=== PATIENT | male | born 1950 | race Caucasian/White ===

== ENCOUNTER 2017-07-26 03:54 | Emergency (ER) | payer OTHER ==
[~2017-07-26] VITALS: Ht 190.5 cm; Wt 170.1 kg
[~2017-07-26 03:54] MED LIST: ATENOLOL25 MG PO; BLACK CHERRY CONCENT; COUMADIN5 M2 PO; DILTIAZEM HCL120 MG PO; FINASTERIDE5 MG PO; FISH OIL1 IU PO; GABAPENTIN1 CRY PO; KEFLEX500 MG PO; LASIX40 MG PO; LASIX80 MG PO; LISINOPRIL20 MG PO; MASON NATURAL1200 MG PO; MICRO-K10 MEQ PO; OSTEO-BI-FLEX 21 TAB PO; TURMERIC1 POW; VICODIN 500 MG-1 TAB PO; WARFARIN4 MG PO; ZOCOR20 MG PO; ZYLOPRIM300 MG PO
[2017-07-26] MEDS ORDERED: WARFARIN SODIUM3 MG PO (04:06)
[2017-07-26] MEDS ORDERED: CARVEDILOL12.5 MG PO (04:06)
[2017-07-26] MEDS ORDERED: TESTOSTERO200 MG/1 M IM (04:07)
[2017-07-26] MEDS ORDERED: TORSEMIDE100 MG PO (04:07)
[2017-07-26] MEDS ORDERED: POTASSIUM CHLO20 ME3 PO (04:08)
[2017-07-26 04:29] LABS: BILIRUBIN NEGATIVE (NEGATIVE); BLOOD 3+ (NEGATIVE); CLARITY CLOUDY (CLEAR); COLOR YELLOW (YELLOW); GLUCOSE NEGATIVE (NEGATIVE); KETONE NEGATIVE (NEGATIVE); LEUKO ESTERASE 3+ (NEGATIVE); NITRITE POSITIVE (NEGATIVE); PH 5.5 (5.0-9.0); UROBILINOGEN 0.2 E.U./dl (0.2-1.0)
[2017-07-26 04:35] LABS: HEMATOCRIT 51.9 % (42.0-52.0); HEMOGLOBIN 16.9 g/dl (14.0-18.0); MEAN CELL VOLUME 97.2 fl (80.0-94.0); MEAN CORPUSCULAR HGB 31.6 pg (27.0-31.0); MEAN CORPUSCULAR HGB CONC 32.6 g/dl (33.0-37.0); MEAN PLATELET VOLUME 11.7 fl (9.6-12.3); PLATELET COUNT AUTOMATED 224 10*3/uL (130-400); RED BLOOD COUNT 5.34 10*6/uL (4.50-5.90); RED CELL DISTRI WIDTH 14.2 % (0-14.5); WHITE BLOOD COUNT 13.6 10*3/uL (4.8-10.8)
[2017-07-26 04:44] LABS: WBC TNTC wbc/hpf (0-5)
[2017-07-26 04:51] LABS: ALBUMIN 3.1 gm/dl (3.1-4.5); CREATININE 1.43 mg/dL (0.70-1.30); POTASSIUM 4.6 mmol/L (3.5-5.1); TOTAL PROTEIN 7.4 gm/dL (6.4-8.2)
[2017-07-26 04:52] LABS: PLATELET SUFFICIENCY NORMAL (NORMAL); TOTAL CELLS COUNTED 100 #CELLS
[2017-07-26] MEDS ORDERED: NORCO 5-325 TA1 EACH PO (05:35)
[2017-07-26] MEDS ORDERED: SEPTDS PO (05:35)
== END 2017-07-26 06:45 | disposition home or self-care (01) ==
LOC: ED 03:54
PROVIDERS: Student in an Organized Health Care Education/Training Program
DX: N39.0 Urinary tract infection, site not specified (principal); R31.9 Hematuria, unspecified; Z79.899 Other long term (current) drug therapy; Z79.02 Long term (current) use of antithrombotics/antiplatelets

== ENCOUNTER 2017-07-30 21:56 | Inpatient (IN) | payer OTHER ==
[~2017-07-30] VITALS: Ht 190.5 cm; Wt 182.5 kg
[~2017-07-30 21:56] MED LIST changes: +CARVEDILOL12.5 MG PO; +NORCO 5-325 TA1 EACH PO; +POTASSIUM CHLO20 ME3 PO; +SEPTDS PO; +TESTOSTERO200 MG/1 M IM; +TORSEMIDE100 MG PO; +WARFARIN SODIUM3 MG PO
[2017-07-30 22:08] VITALS: BP 183/107
[2017-07-30 22:21] VITALS: BP 170/108
[2017-07-30 22:58] LABS: BASO # 0.1 10*3/uL (0.0-0.1); BASO % 0.7 % (0.0-1.0); EOS # 0.3 10*3/uL (0.0-0.4); EOS % 3.2 % (1.0-4.0); HEMATOCRIT 50.8 % (42.0-52.0); HEMOGLOBIN 16.5 g/dl (14.0-18.0); LYMPH # 2.5 10*3/uL (1.3-4.4); LYMPH % 26.3 % (27.0-41.0); MEAN CELL VOLUME 97.9 fl (80.0-94.0); MEAN CORPUSCULAR HGB 31.8 pg (27.0-31.0); MEAN CORPUSCULAR HGB CONC 32.5 g/dl (33.0-37.0); MEAN PLATELET VOLUME 11.1 fl (9.6-12.3); MONO # 0.9 10*3/uL (0.1-1.0); MONO % 9.6 % (3.0-9.0); NEUT # 5.7 10*3/uL (2.3-7.9); NEUT % 59.4 % (47.0-73.0); PLATELET COUNT AUTOMATED 289 10*3/uL (130-400); RED BLOOD COUNT 5.19 10*6/uL (4.50-5.90); RED CELL DISTRI WIDTH 14.3 % (0-14.5); WHITE BLOOD COUNT 9.6 10*3/uL (4.8-10.8)
[2017-07-30 23:07] VITALS: BP 170/104
[2017-07-30 23:08] LABS: ACT PARTIAL THROMBO TIME 33.9 SECONDS (20.8-31.5); INTERNATIONAL NORM RATIO 1.9 (2.0-3.5)
[2017-07-30 23:09] VITALS: BP 160/94
[2017-07-30 23:13] VITALS: BP 147/85
[2017-07-30 23:15] LABS: ALBUMIN 3.2 gm/dl (3.1-4.5); ALKALINE PHOSPHATASE 104 U/L (45-117); BUN 31 mg/dl (7-24); CHLORIDE 107 mmol/L (98-107); CREATININE 1.39 mg/dL (0.70-1.30); POTASSIUM 4.8 mmol/L (3.5-5.1); SGOT/AST 25 IU/L (3-35); SGPT/ALT 44 U/L (12-78); SODIUM 140 mmol/L (136-145); TOTAL PROTEIN 7.6 gm/dL (6.4-8.2)
[2017-07-30 23:16] LABS: TROPONIN I < 0.015 ng/ml (<0.045)
[2017-07-31] VITALS (10 sets, daily range): BP systolic 153–187; BP diastolic 89–110
[2017-07-31 06:04] LABS: BASO # 0.1 10*3/uL (0.0-0.1); BASO % 0.8 % (0.0-1.0); EOS # 0.3 10*3/uL (0.0-0.4); EOS % 3.1 % (1.0-4.0); HEMOGLOBIN 16.3 g/dl (14.0-18.0); LYMPH # 2.4 10*3/uL (1.3-4.4); LYMPH % 25.3 % (27.0-41.0); MEAN CELL VOLUME 98.2 fl (80.0-94.0); MEAN CORPUSCULAR HGB CONC 32.6 g/dl (33.0-37.0); MEAN PLATELET VOLUME 11.7 fl (9.6-12.3); MONO # 0.8 10*3/uL (0.1-1.0); MONO % 8.3 % (3.0-9.0); NEUT # 5.9 10*3/uL (2.3-7.9); NEUT % 61.3 % (47.0-73.0); PLATELET COUNT AUTOMATED 296 10*3/uL (130-400); RED BLOOD COUNT 5.09 10*6/uL (4.50-5.90); RED CELL DISTRI WIDTH 14.2 % (0-14.5); WHITE BLOOD COUNT 9.6 10*3/uL (4.8-10.8)
[2017-07-31 06:05] LABS: ALKALINE PHOSPHATASE 103 U/L (45-117); BUN 27 mg/dl (7-24); CHLORIDE 106 mmol/L (98-107); CHOLESTEROL 138 mg/dL (<200); CREATININE 1.33 mg/dL (0.70-1.30); HDL CHOLESTEROL 28 mg/dl (40-60); LDL CHOLESTEROL 73 mg/dL (9-159); POTASSIUM 4.3 mmol/L (3.5-5.1); SGOT/AST 24 IU/L (3-35); SGPT/ALT 44 U/L (12-78); SODIUM 140 mmol/L (136-145); TOTAL PROTEIN 7.5 gm/dL (6.4-8.2); TRIGLYCERIDES 187 mg/dl (<150); VLDL CHOLESTEROL 37 mg/dL (6-40)
[2017-07-31 07:15] LABS: VITAMIN D, 25-HYDROXY 19.8 ng/mL (30-100)
[2017-07-31] MEDS ORDERED: LOSARTAN POTASS50 M1 PO (13:04)
[2017-07-31] MEDS ORDERED: VITAMIN D5000 UNI1 PO (13:04)
[2017-07-31 16:18] LABS: BILIRUBIN NEGATIVE (NEGATIVE); BLOOD TRACE-INTACT (NEGATIVE); CLARITY CLEAR (CLEAR); COLOR YELLOW (YELLOW); GLUCOSE NEGATIVE (NEGATIVE); KETONE NEGATIVE (NEGATIVE); LEUKO ESTERASE NEGATIVE (NEGATIVE); NITRITE NEGATIVE (NEGATIVE); PH 5.5 (5.0-9.0); SPECIFIC GRAVITY <= 1.005 (1.005-1.030); UROBILINOGEN 0.2 E.U./dl (0.2-1.0)
[2017-07-31 16:25] LABS: BACTERIA 1+; RBC 0-2 rbc/hpf (0-2)
[2017-08-01] VITALS: BP 153/89
[2017-08-01 07:30] LABS: ALBUMIN 3.3 gm/dl (3.1-4.5); BUN 24 mg/dl (7-24); CHLORIDE 105 mmol/L (98-107); POTASSIUM 4.7 mmol/L (3.5-5.1); SODIUM 142 mmol/L (136-145)
[2017-08-01 07:33] LABS: CREATININE 1.28 mg/dL (0.70-1.30); PHOSPHOROUS 3.4 mg/dL (2.5-4.9)
[2017-08-01 08:00] VITALS: BP 168/84
[2017-08-01 12:00] VITALS: BP 164/103
[2017-08-01] MEDS ORDERED: AMLODIPINE BESYL5 MG PO (14:59)
[2017-08-01 15:00] VITALS: BP 150/95
[2017-08-01] MEDS ORDERED: COZAAR100 MG PO (15:01)
== END 2017-08-01 16:00 | disposition home or self-care (01) | DRG 304 ==
LOC: ED 21:56 → EDHOLD 07-31 00:20 → 4E 07-31 00:39
PROVIDERS: Hospitalist; Internal Medicine; Student in an Organized Health Care Education/Training Program
PROC: 5A09357 Assistance with Respiratory Ventilation, Less than 24 Consecutive Hours, Continuous Positive Airway Pressure (ICD-10-PCS; principal; 2017-07-31)
PROC: 5A09357 Assistance with Respiratory Ventilation, Less than 24 Consecutive Hours, Continuous Positive Airway Pressure (ICD-10-PCS; 2017-08-01)
DX: I16.1 Hypertensive emergency (principal); N17.0 Acute kidney failure with tubular necrosis; D68.59 Other primary thrombophilia; I48.2 Chronic atrial fibrillation; I50.9 Heart failure, unspecified; E66.01 Morbid (severe) obesity due to excess calories; E44.1 Mild protein-calorie malnutrition; G62.89 Other specified polyneuropathies; N18.3 Chronic kidney disease, stage 3 (moderate); N39.0 Urinary tract infection, site not specified; Z68.43 Body mass index [BMI] 50.0-59.9, adult; G47.39 Other sleep apnea; D72.810 Lymphocytopenia; N40.0 Benign prostatic hyperplasia without lower urinary tract symptoms; D72.821 Monocytosis (symptomatic); R73.9 Hyperglycemia, unspecified; R73.03 Prediabetes; E55.9 Vitamin D deficiency, unspecified; I13.0 Hypertensive heart and chronic kidney disease with heart failure and stage 1 through stage 4 chronic kidney disease, or unspecified chronic kidney disease; Z80.52 Family history of malignant neoplasm of bladder; Z82.49 Family history of ischemic heart disease and other diseases of the circulatory system; Z98.1 Arthrodesis status; Z90.49 Acquired absence of other specified parts of digestive tract; Z82.5 Family history of asthma and other chronic lower respiratory diseases; Z79.899 Other long term (current) drug therapy; Z80.6 Family history of leukemia

== ENCOUNTER → 2017-08-13 | Outpatient (CLI) | payer OTHER ==
[~2017-08-13] MED LIST changes: +AMLODIPINE BESYL5 MG PO; +COZAAR100 MG PO; +LOSARTAN POTASS50 M1 PO; +VITAMIN D5000 UNI1 PO
[2017-08-13 16:44] LABS: INTERNATIONAL NORM RATIO 2.2 (2.0-3.5)
[2017-08-13 16:48] LABS: ALBUMIN 3.6 gm/dl (3.1-4.5); ALKALINE PHOSPHATASE 102 U/L (45-117); BUN 37 mg/dl (7-24); CHLORIDE 101 mmol/L (98-107); CREATININE 1.31 mg/dL (0.70-1.30); POTASSIUM 4.7 mmol/L (3.5-5.1); SGOT/AST 42 IU/L (3-35); SGPT/ALT 83 U/L (12-78); SODIUM 138 mmol/L (136-145); TOTAL PROTEIN 8.1 gm/dL (6.4-8.2)
[2017-08-15 00:08] LABS: TESTOSTERONE FREE, (DIRECT) 11.5 pg/mL (6.6-18.1)
== END | disposition home or self-care (01) ==
LOC: RESCLI 02:25 → LAB 02:25 → RESCLI 12:33
PROVIDERS: Internal Medicine
DX: I48.2 Chronic atrial fibrillation (principal); N40.0 Benign prostatic hyperplasia without lower urinary tract symptoms

== ENCOUNTER → 2017-09-10 | Outpatient (CLI) | payer OTHER | END | disposition home or self-care (01) | LOC: RESCLI 02:13 | DX: I12.9 Hypertensive chronic kidney disease with stage 1 through stage 4 chronic kidney disease, or unspecified chronic kidney disease (principal); N18.3 Chronic kidney disease, stage 3 (moderate); I48.2 Chronic atrial fibrillation; E55.9 Vitamin D deficiency, unspecified; E66.01 Morbid (severe) obesity due to excess calories; G47.33 Obstructive sleep apnea (adult) (pediatric); D68.59 Other primary thrombophilia; N40.0 Benign prostatic hyperplasia without lower urinary tract symptoms; E29.1 Testicular hypofunction; Z79.01 Long term (current) use of anticoagulants; Z90.49 Acquired absence of other specified parts of digestive tract ==

== ENCOUNTER → 2017-09-17 | Outpatient (CLI) | payer OTHER | END | disposition home or self-care (01) | LOC: RESCLI 02:20 | DX: I12.9 Hypertensive chronic kidney disease with stage 1 through stage 4 chronic kidney disease, or unspecified chronic kidney disease (principal); I48.2 Chronic atrial fibrillation; N18.3 Chronic kidney disease, stage 3 (moderate); M1A.09X0 Idiopathic chronic gout, multiple sites, without tophus (tophi); N40.0 Benign prostatic hyperplasia without lower urinary tract symptoms; D68.59 Other primary thrombophilia; G47.33 Obstructive sleep apnea (adult) (pediatric); E55.9 Vitamin D deficiency, unspecified; E29.1 Testicular hypofunction; R74.0 Nonspecific elevation of levels of transaminase and lactic acid dehydrogenase [LDH]; E66.01 Morbid (severe) obesity due to excess calories; Z90.49 Acquired absence of other specified parts of digestive tract ==

== ENCOUNTER → 2017-12-17 | Outpatient (CLI) | payer OTHER | END | disposition home or self-care (01) | LOC: RESCLI 02:16 | DX: I12.9 Hypertensive chronic kidney disease with stage 1 through stage 4 chronic kidney disease, or unspecified chronic kidney disease (principal); N18.3 Chronic kidney disease, stage 3 (moderate); I48.2 Chronic atrial fibrillation; N40.0 Benign prostatic hyperplasia without lower urinary tract symptoms; G62.9 Polyneuropathy, unspecified; D68.59 Other primary thrombophilia; E55.9 Vitamin D deficiency, unspecified; E29.1 Testicular hypofunction; E66.01 Morbid (severe) obesity due to excess calories; E44.1 Mild protein-calorie malnutrition; M1A.09X0 Idiopathic chronic gout, multiple sites, without tophus (tophi); G47.33 Obstructive sleep apnea (adult) (pediatric); R73.03 Prediabetes; R74.0 Nonspecific elevation of levels of transaminase and lactic acid dehydrogenase [LDH]; Z79.01 Long term (current) use of anticoagulants; Z90.49 Acquired absence of other specified parts of digestive tract ==

== ENCOUNTER → 2017-12-24 | Outpatient (CLI) | payer OTHER ==
[2017-12-24 12:47] LABS: BASO # 0.1 10*3/uL (0.0-0.1); BASO % 0.6 % (0.0-1.0); EOS # 0.5 10*3/uL (0.0-0.4); EOS % 5.6 % (1.0-4.0); HEMOGLOBIN 19.2 g/dl (14.0-18.0); LYMPH # 1.9 10*3/uL (1.3-4.4); LYMPH % 23.3 % (27.0-41.0); MEAN CORPUSCULAR HGB 31.3 pg (27.0-31.0); MEAN CORPUSCULAR HGB CONC 31.3 g/dl (33.0-37.0); MEAN PLATELET VOLUME 11.8 fl (9.6-12.3); MONO # 0.7 10*3/uL (0.1-1.0); MONO % 8.3 % (3.0-9.0); NEUT # 5.1 10*3/uL (2.3-7.9); NEUT % 61.8 % (47.0-73.0); PLATELET COUNT AUTOMATED 212 10*3/uL (130-400); RED BLOOD COUNT 6.14 10*6/uL (4.50-5.90); RED CELL DISTRI WIDTH 14.6 % (0-14.5); WHITE BLOOD COUNT 8.3 10*3/uL (4.8-10.8)
[2017-12-24 13:02] LABS: ALBUMIN 3.5 gm/dl (3.1-4.5); CREATININE 1.43 mg/dL (0.70-1.30); POTASSIUM 4.5 mmol/L (3.5-5.1); TOTAL PROTEIN 8.1 gm/dL (6.4-8.2)
[2017-12-24 13:09] LABS: INTERNATIONAL NORM RATIO 1.7 (2.0-3.5)
[2017-12-24 13:23] LABS: HEMATOCRIT 61.4 % (42.0-52.0)
[2017-12-24 14:09] LABS: VITAMIN D, 25-HYDROXY 25.7 ng/mL (30-100)
[2017-12-25 07:04] LABS: HEPATITIS B SURFACE AG Negative (Negative); HEPATITIS C VIRUS ANTIBODY 0.1 s/co (0.0-0.9)
[2017-12-26 15:04] LABS: TESTOSTERONE FREE, (DIRECT) 13.2 pg/mL (6.6-18.1)
== END | disposition home or self-care (01) ==
LOC: LAB 12:01
PROVIDERS: Internal Medicine Hospice and Palliative Medicine
DX: I10 Essential (primary) hypertension (principal); I48.2 Chronic atrial fibrillation; E55.9 Vitamin D deficiency, unspecified; D68.59 Other primary thrombophilia; M1A.09X0 Idiopathic chronic gout, multiple sites, without tophus (tophi); G62.9 Polyneuropathy, unspecified; R74.0 Nonspecific elevation of levels of transaminase and lactic acid dehydrogenase [LDH]; R73.03 Prediabetes

== ENCOUNTER 2018-02-12 20:50 | Emergency (ER) | payer OTHER ==
[~2018-02-12] VITALS: Ht 190.5 cm; Wt 186.0 kg
[2018-02-12] MEDS ORDERED: XARELTO10 MG PO (20:54)
== END 2018-02-12 21:57 | disposition home or self-care (01) ==
LOC: ED 20:50
DX: R04.0 Epistaxis (principal); I48.2 Chronic atrial fibrillation; N18.3 Chronic kidney disease, stage 3 (moderate); I12.9 Hypertensive chronic kidney disease with stage 1 through stage 4 chronic kidney disease, or unspecified chronic kidney disease; E66.01 Morbid (severe) obesity due to excess calories; Z68.43 Body mass index [BMI] 50.0-59.9, adult; G62.9 Polyneuropathy, unspecified; R73.03 Prediabetes; Z79.899 Other long term (current) drug therapy

== ENCOUNTER 2018-02-15 12:59 | Emergency (ER) | payer OTHER ==
[~2018-02-15 12:59] MED LIST changes: +XARELTO10 MG PO
[2018-02-15 15:19] LABS: BASO # 0.1 10*3/uL (0.0-0.1); BASO % 0.5 % (0.0-1.0); EOS # 0.4 10*3/uL (0.0-0.4); EOS % 4.7 % (1.0-4.0); HEMATOCRIT 51.5 % (42.0-52.0); HEMOGLOBIN 16.3 g/dl (14.0-18.0); LYMPH # 2.1 10*3/uL (1.3-4.4); LYMPH % 22.1 % (27.0-41.0); MEAN CELL VOLUME 96.8 fl (80.0-94.0); MEAN CORPUSCULAR HGB 30.6 pg (27.0-31.0); MEAN CORPUSCULAR HGB CONC 31.7 g/dl (33.0-37.0); MEAN PLATELET VOLUME 11.4 fl (9.6-12.3); MONO # 0.8 10*3/uL (0.1-1.0); MONO % 8.4 % (3.0-9.0); PLATELET COUNT AUTOMATED 204 10*3/uL (130-400); RED BLOOD COUNT 5.32 10*6/uL (4.50-5.90); WHITE BLOOD COUNT 9.3 10*3/uL (4.8-10.8)
[2018-02-15 15:27] LABS: INTERNATIONAL NORM RATIO 1.1 (2.0-3.5)
[2018-02-15 15:33] LABS: ALBUMIN 3.3 gm/dl (3.1-4.5); ALKALINE PHOSPHATASE 93 U/L (45-117); BUN 36 mg/dl (7-24); CHLORIDE 102 mmol/L (98-107); CREATININE 1.42 mg/dL (0.70-1.30); POTASSIUM 4.2 mmol/L (3.5-5.1); SGOT/AST 32 IU/L (3-35); SGPT/ALT 58 U/L (12-78); SODIUM 141 mmol/L (136-145); TOTAL PROTEIN 7.7 gm/dL (6.4-8.2)
== END 2018-02-15 16:44 | disposition home or self-care (01) ==
LOC: ED 12:59
PROVIDERS: Nurse Practitioner Family
DX: R04.0 Epistaxis (principal); I48.91 Unspecified atrial fibrillation; Z90.49 Acquired absence of other specified parts of digestive tract; Z98.890 Other specified postprocedural states; Z79.01 Long term (current) use of anticoagulants; Z79.899 Other long term (current) drug therapy

== ENCOUNTER → 2018-03-20 | Outpatient (CLI) | payer OTHER | END | disposition home or self-care (01) | LOC: RESCLI 04:13 | DX: I48.2 Chronic atrial fibrillation (principal); I12.9 Hypertensive chronic kidney disease with stage 1 through stage 4 chronic kidney disease, or unspecified chronic kidney disease; N18.3 Chronic kidney disease, stage 3 (moderate); M1A.09X0 Idiopathic chronic gout, multiple sites, without tophus (tophi); N40.0 Benign prostatic hyperplasia without lower urinary tract symptoms; R73.03 Prediabetes; D68.59 Other primary thrombophilia; G47.33 Obstructive sleep apnea (adult) (pediatric); E55.9 Vitamin D deficiency, unspecified; E29.1 Testicular hypofunction; E66.01 Morbid (severe) obesity due to excess calories; G62.9 Polyneuropathy, unspecified; Z79.01 Long term (current) use of anticoagulants; Z90.49 Acquired absence of other specified parts of digestive tract; Z79.899 Other long term (current) drug therapy ==

== ENCOUNTER → 2018-05-29 | Outpatient (CLI) | payer OTHER | END | disposition home or self-care (01) | LOC: RESCLI 02:42 | DX: I12.9 Hypertensive chronic kidney disease with stage 1 through stage 4 chronic kidney disease, or unspecified chronic kidney disease (principal); N18.3 Chronic kidney disease, stage 3 (moderate); I48.2 Chronic atrial fibrillation; G62.9 Polyneuropathy, unspecified; E29.1 Testicular hypofunction; N40.0 Benign prostatic hyperplasia without lower urinary tract symptoms; M1A.09X0 Idiopathic chronic gout, multiple sites, without tophus (tophi); E55.9 Vitamin D deficiency, unspecified; R60.0 Localized edema; R73.03 Prediabetes; E66.01 Morbid (severe) obesity due to excess calories; Z79.01 Long term (current) use of anticoagulants; Z79.899 Other long term (current) drug therapy; Z90.49 Acquired absence of other specified parts of digestive tract ==

== ENCOUNTER → 2018-06-04 | Outpatient (CLI) | payer OTHER | END | disposition home or self-care (01) | LOC: RESCLI 01:06 | DX: L57.0 Actinic keratosis (principal); E10.9 Type 1 diabetes mellitus without complications; E55.9 Vitamin D deficiency, unspecified; E78.2 Mixed hyperlipidemia; K21.9 Gastro-esophageal reflux disease without esophagitis; M54.5 Low back pain; D64.9 Anemia, unspecified; K50.911 Crohn's disease, unspecified, with rectal bleeding; R00.0 Tachycardia, unspecified; R11.2 Nausea with vomiting, unspecified; F17.200 Nicotine dependence, unspecified, uncomplicated; Z79.899 Other long term (current) drug therapy; Z88.8 Allergy status to other drugs, medicaments and biological substances ==

== ENCOUNTER → 2018-11-19 | Outpatient (CLI) | payer OTHER ==
[2018-11-19 08:55] LABS: BASO # 0.1 10*3/uL (0.0-0.1); BASO % 0.7 % (0.0-1.0); EOS # 0.6 10*3/uL (0.0-0.4); EOS % 6.5 % (1.0-4.0); LYMPH # 2.3 10*3/uL (1.3-4.4); LYMPH % 26.2 % (27.0-41.0); MEAN CELL VOLUME 97.3 fl (80.0-94.0); MEAN CORPUSCULAR HGB 30.6 pg (27.0-31.0); MEAN CORPUSCULAR HGB CONC 31.5 g/dl (33.0-37.0); MEAN PLATELET VOLUME 11.8 fl (9.6-12.3); MONO # 0.8 10*3/uL (0.1-1.0); MONO % 9.2 % (3.0-9.0); NEUT % 57.2 % (47.0-73.0); PLATELET COUNT AUTOMATED 203 10*3/uL (130-400); RED BLOOD COUNT 5.55 10*6/uL (4.50-5.90); RED CELL DISTRI WIDTH 14.4 % (0-14.5); WHITE BLOOD COUNT 8.8 10*3/uL (4.8-10.8)
[2018-11-19 09:22] LABS: ALBUMIN 3.4 gm/dl (3.1-4.5); ALKALINE PHOSPHATASE 99 U/L (45-117); BUN 27 mg/dl (7-24); CHLORIDE 107 mmol/L (98-107); CHOLESTEROL 177 mg/dL (<200); CREATININE 1.28 mg/dL (0.70-1.30); HDL CHOLESTEROL 35 mg/dl (40-60); LDL CHOLESTEROL 120 mg/dL (9-159); POTASSIUM 4.1 mmol/L (3.5-5.1); SGOT/AST 39 IU/L (3-35); SGPT/ALT 81 U/L (12-78); SODIUM 143 mmol/L (136-145); TOTAL PROTEIN 7.8 gm/dL (6.4-8.2); TRIGLYCERIDES 112 mg/dl (<150); VLDL CHOLESTEROL 22 mg/dL (6-40)
== END | disposition home or self-care (01) ==
LOC: LAB 08:12
PROVIDERS: Internal Medicine
DX: I48.2 Chronic atrial fibrillation (principal); I10 Essential (primary) hypertension; E55.9 Vitamin D deficiency, unspecified; R73.03 Prediabetes; Z79.01 Long term (current) use of anticoagulants

== ENCOUNTER → 2018-12-12 | Outpatient (CLI) | payer OTHER ==
[2018-12-12 08:47] LABS: BASO # 0.1 10*3/uL (0.0-0.1); BASO % 0.7 % (0.0-1.0); EOS # 0.5 10*3/uL (0.0-0.4); EOS % 5.8 % (1.0-4.0); HEMATOCRIT 51.9 % (42.0-52.0); HEMOGLOBIN 16.7 g/dl (14.0-18.0); LYMPH # 2.9 10*3/uL (1.3-4.4); LYMPH % 32.3 % (27.0-41.0); MEAN CELL VOLUME 97.7 fl (80.0-94.0); MEAN CORPUSCULAR HGB 31.5 pg (27.0-31.0); MEAN CORPUSCULAR HGB CONC 32.2 g/dl (33.0-37.0); MEAN PLATELET VOLUME 11.2 fl (9.6-12.3); MONO # 0.9 10*3/uL (0.1-1.0); MONO % 9.3 % (3.0-9.0); NEUT # 4.7 10*3/uL (2.3-7.9); NEUT % 51.4 % (47.0-73.0); PLATELET COUNT AUTOMATED 248 10*3/uL (130-400); RED BLOOD COUNT 5.31 10*6/uL (4.50-5.90); RED CELL DISTRI WIDTH 14.1 % (0-14.5); WHITE BLOOD COUNT 9.1 10*3/uL (4.8-10.8)
[2018-12-13 16:09] LABS: PROSTATE SPECIFIC AG FREE 0.54 ng/mL; PROSTATE SPECIFIC AG, SERUM 2.3 ng/mL (0.0-4.0)
[2018-12-14 14:07] LABS: TESTOSTERONE FREE, (DIRECT) 12.3 pg/mL (6.6-18.1)
== END | disposition home or self-care (01) ==
LOC: LAB 08:26
PROVIDERS: Student in an Organized Health Care Education/Training Program
DX: E29.1 Testicular hypofunction (principal); N40.0 Benign prostatic hyperplasia without lower urinary tract symptoms

== ENCOUNTER → 2019-01-28 | Outpatient (CLI) | payer OTHER ==
[2019-01-28 12:18] LABS: BASO # 0.1 10*3/uL (0.0-0.1); BASO % 0.6 % (0.0-1.0); EOS # 0.2 10*3/uL (0.0-0.4); EOS % 1.8 % (1.0-4.0); HEMATOCRIT 49.7 % (42.0-52.0); HEMOGLOBIN 15.8 g/dl (14.0-18.0); LYMPH # 1.8 10*3/uL (1.3-4.4); LYMPH % 16.1 % (27.0-41.0); MEAN CELL VOLUME 97.8 fl (80.0-94.0); MEAN CORPUSCULAR HGB 31.1 pg (27.0-31.0); MEAN CORPUSCULAR HGB CONC 31.8 g/dl (33.0-37.0); MEAN PLATELET VOLUME 11.7 fl (9.6-12.3); MONO # 1.1 10*3/uL (0.1-1.0); MONO % 9.4 % (3.0-9.0); NEUT # 8.2 10*3/uL (2.3-7.9); NEUT % 71.6 % (47.0-73.0); PLATELET COUNT AUTOMATED 240 10*3/uL (130-400); RED BLOOD COUNT 5.08 10*6/uL (4.50-5.90); RED CELL DISTRI WIDTH 13.7 % (0-14.5); WHITE BLOOD COUNT 11.4 10*3/uL (4.8-10.8)
== END | disposition home or self-care (01) ==
LOC: RESCLI 08:27
PROVIDERS: Internal Medicine
DX: M21.6X1 Other acquired deformities of right foot (principal); I12.9 Hypertensive chronic kidney disease with stage 1 through stage 4 chronic kidney disease, or unspecified chronic kidney disease; N18.3 Chronic kidney disease, stage 3 (moderate); I48.2 Chronic atrial fibrillation; S99.911A Unspecified injury of right ankle, initial encounter; E66.01 Morbid (severe) obesity due to excess calories; G62.9 Polyneuropathy, unspecified; M1A.09X0 Idiopathic chronic gout, multiple sites, without tophus (tophi); R73.03 Prediabetes; D68.59 Other primary thrombophilia; R60.0 Localized edema; Z79.899 Other long term (current) drug therapy; Z79.01 Long term (current) use of anticoagulants; Z68.43 Body mass index [BMI] 50.0-59.9, adult; Z90.49 Acquired absence of other specified parts of digestive tract; X58.XXXA Exposure to other specified factors, initial encounter; Y93.89 Activity, other specified; Y92.89 Other specified places as the place of occurrence of the external cause; Y99.8 Other external cause status

== ENCOUNTER → 2019-03-07 | Outpatient (CLI) | payer OTHER | END | disposition home or self-care (01) | LOC: RESCLI 01:13 | DX: I48.2 Chronic atrial fibrillation (principal); R60.0 Localized edema; E55.9 Vitamin D deficiency, unspecified; E53.8 Deficiency of other specified B group vitamins; G62.9 Polyneuropathy, unspecified; Z79.01 Long term (current) use of anticoagulants; Z79.899 Other long term (current) drug therapy; I12.9 Hypertensive chronic kidney disease with stage 1 through stage 4 chronic kidney disease, or unspecified chronic kidney disease; N18.3 Chronic kidney disease, stage 3 (moderate) ==

== ENCOUNTER → 2019-06-19 | Outpatient (CLI) | payer OTHER | END | disposition home or self-care (01) | LOC: RESCLI 00:54 | DX: I48.20 Chronic atrial fibrillation, unspecified (principal); I10 Essential (primary) hypertension; G62.9 Polyneuropathy, unspecified; E55.9 Vitamin D deficiency, unspecified; E53.8 Deficiency of other specified B group vitamins; N40.0 Benign prostatic hyperplasia without lower urinary tract symptoms; M10.041 Idiopathic gout, right hand; E66.01 Morbid (severe) obesity due to excess calories; R60.0 Localized edema; R73.03 Prediabetes; Z79.01 Long term (current) use of anticoagulants; Z79.899 Other long term (current) drug therapy; Z90.49 Acquired absence of other specified parts of digestive tract; Z90.89 Acquired absence of other organs ==

== ENCOUNTER 2019-07-20 05:38 | Inpatient (IN) | payer OTHER ==
[~2019-07-20] VITALS: Ht 190.5 cm; Wt 184.3 kg
[~2019-07-20 05:38] MED LIST changes: -XARELTO10 MG PO; +XARELTO20 M1 PO
[2019-07-20 05:49] VITALS: BP 105/59
[2019-07-20 07:02] LABS: HEMATOCRIT 45.4 % (42.0-52.0); HEMOGLOBIN 14.3 g/dl (14.0-18.0); MEAN CELL VOLUME 98.9 fl (80.0-94.0); MEAN CORPUSCULAR HGB 31.2 pg (27.0-31.0); MEAN CORPUSCULAR HGB CONC 31.5 g/dl (33.0-37.0); PLATELET COUNT AUTOMATED 226 10*3/uL (130-400); RED BLOOD COUNT 4.59 10*6/uL (4.50-5.90); RED CELL DISTRI WIDTH 14.5 % (0-14.5); WHITE BLOOD COUNT 17.8 10*3/uL (4.8-10.8)
[2019-07-20 07:12] LABS: ACT PARTIAL THROMBO TIME 41.4 SECONDS (20.0-32.1); INTERNATIONAL NORM RATIO 1.1 (2.0-3.5)
[2019-07-20 07:21] LABS: ALBUMIN 2.5 gm/dl (3.1-4.5); CREATININE 1.64 mg/dL (0.70-1.30); POTASSIUM 3.8 mmol/L (3.5-5.1); TOTAL PROTEIN 7.1 gm/dL (6.4-8.2)
[2019-07-20 07:25] LABS: PLATELET SUFFICIENCY NORMAL (NORMAL); TOTAL CELLS COUNTED 100 #CELLS
[2019-07-20 08:05] VITALS: BP 88/48
[2019-07-20 08:27] VITALS: BP 102/62
[2019-07-20 12:00] VITALS: BP 100/42
[2019-07-20 16:00] VITALS: BP 146/75
[2019-07-20 20:00] VITALS: BP 125/70
[2019-07-21] VITALS: BP 108/50
[2019-07-21 06:31] LABS: HEMATOCRIT 44.2 % (42.0-52.0); HEMOGLOBIN 13.9 g/dl (14.0-18.0); MEAN CELL VOLUME 99.1 fl (80.0-94.0); MEAN CORPUSCULAR HGB 31.2 pg (27.0-31.0); MEAN CORPUSCULAR HGB CONC 31.4 g/dl (33.0-37.0); MEAN PLATELET VOLUME 11.6 fl (9.6-12.3); PLATELET COUNT AUTOMATED 223 10*3/uL (130-400); RED BLOOD COUNT 4.46 10*6/uL (4.50-5.90); RED CELL DISTRI WIDTH 14.6 % (0-14.5); WHITE BLOOD COUNT 18.6 10*3/uL (4.8-10.8)
[2019-07-21 06:36] LABS: CREATININE 1.55 mg/dL (0.70-1.30); PHOSPHOROUS 3.6 mg/dL (2.5-4.9); POTASSIUM 4.2 mmol/L (3.5-5.1)
[2019-07-21 07:18] LABS: PLATELET SUFFICIENCY NORMAL (NORMAL); TOTAL CELLS COUNTED 100 #CELLS
[2019-07-21 08:00] VITALS: BP 134/90
[2019-07-21 12:00] VITALS: BP 158/88
[2019-07-21] MEDS ORDERED: PENNSAID112 GM T (12:15)
[2019-07-21] MEDS ORDERED: VITAMIN D-32000 UNI1 PO (12:18)
[2019-07-21] MEDS ORDERED: VITAMIN B1250 MCG PO (12:22)
[2019-07-21] MEDS ORDERED: Oscal,Oyster S500 MG PO (12:25)
[2019-07-21] MEDS ORDERED: PREDNISONE20 M1 PO (12:26)
[2019-07-21 16:15] VITALS: BP 138/80; BP 175/82
[2019-07-21 20:00] VITALS: BP 140/67
[2019-07-22] VITALS: BP 124/68
[2019-07-22 06:08] LABS: HEMOGLOBIN 13.9 g/dl (14.0-18.0); MEAN CELL VOLUME 97.1 fl (80.0-94.0); MEAN CORPUSCULAR HGB 30.7 pg (27.0-31.0); MEAN CORPUSCULAR HGB CONC 31.6 g/dl (33.0-37.0); MEAN PLATELET VOLUME 11.3 fl (9.6-12.3); PLATELET COUNT AUTOMATED 252 10*3/uL (130-400); RED BLOOD COUNT 4.53 10*6/uL (4.50-5.90); RED CELL DISTRI WIDTH 14.4 % (0-14.5); WHITE BLOOD COUNT 17.1 10*3/uL (4.8-10.8)
[2019-07-22 06:49] LABS: ALBUMIN 2.1 gm/dl (3.1-4.5); ALKALINE PHOSPHATASE 111 U/L (45-117); CHLORIDE 107 mmol/L (98-107); CREATININE 1.36 mg/dL (0.70-1.30); POTASSIUM 4.2 mmol/L (3.5-5.1); SGOT/AST 16 IU/L (3-35); SGPT/ALT 42 U/L (12-78); SODIUM 139 mmol/L (136-145); TOTAL PROTEIN 6.7 gm/dL (6.4-8.2)
[2019-07-22 06:50] LABS: BUN 22 mg/dl (7-24)
[2019-07-22 07:20] LABS: BASOPHILS 1 % (0-1); TOTAL CELLS COUNTED 100 #CELLS
[2019-07-22 07:22] LABS: PLATELET SUFFICIENCY NORMAL (NORMAL)
[2019-07-22 08:00] VITALS: BP 126/76
[2019-07-22 12:00] VITALS: BP 135/84
[2019-07-22 16:00] VITALS: BP 119/68
[2019-07-22 20:00] VITALS: BP 135/78
[2019-07-23] VITALS: BP 127/66
[2019-07-23 06:56] LABS: HEMATOCRIT 39.7 % (42.0-52.0); HEMOGLOBIN 12.6 g/dl (14.0-18.0); MEAN CELL VOLUME 98.5 fl (80.0-94.0); MEAN CORPUSCULAR HGB 31.3 pg (27.0-31.0); MEAN CORPUSCULAR HGB CONC 31.7 g/dl (33.0-37.0); MEAN PLATELET VOLUME 11.6 fl (9.6-12.3); PLATELET COUNT AUTOMATED 269 10*3/uL (130-400); RED BLOOD COUNT 4.03 10*6/uL (4.50-5.90); RED CELL DISTRI WIDTH 14.5 % (0-14.5); WHITE BLOOD COUNT 18.4 10*3/uL (4.8-10.8)
[2019-07-23 07:09] LABS: BUN 19 mg/dl (7-24); CHLORIDE 107 mmol/L (98-107); CREATININE 1.32 mg/dL (0.70-1.30); POTASSIUM 4.4 mmol/L (3.5-5.1); SODIUM 139 mmol/L (136-145)
[2019-07-23 07:37] LABS: BASOPHILS 1 % (0-1); PLATELET SUFFICIENCY NORMAL (NORMAL); POLYCHROMASIA SLIGHT; TOTAL CELLS COUNTED 100 #CELLS
[2019-07-23 08:00] VITALS: BP 134/82
[2019-07-23 12:00] VITALS: BP 143/72
[2019-07-23 16:00] VITALS: BP 122/70
[2019-07-23 20:00] VITALS: BP 110/64
[2019-07-24] VITALS: BP 110/74
[2019-07-24 06:13] LABS: HEMATOCRIT 42.6 % (42.0-52.0); HEMOGLOBIN 13.1 g/dl (14.0-18.0); MEAN CELL VOLUME 98.2 fl (80.0-94.0); MEAN CORPUSCULAR HGB 30.2 pg (27.0-31.0); MEAN CORPUSCULAR HGB CONC 30.8 g/dl (33.0-37.0); MEAN PLATELET VOLUME 11.4 fl (9.6-12.3); PLATELET COUNT AUTOMATED 311 10*3/uL (130-400); RED BLOOD COUNT 4.34 10*6/uL (4.50-5.90); RED CELL DISTRI WIDTH 14.5 % (0-14.5); WHITE BLOOD COUNT 18.1 10*3/uL (4.8-10.8)
[2019-07-24 06:18] LABS: CREATININE 1.45 mg/dL (0.70-1.30); POTASSIUM 4.4 mmol/L (3.5-5.1)
[2019-07-24 07:02] LABS: PLATELET SUFFICIENCY NORMAL (NORMAL); TOTAL CELLS COUNTED 100 #CELLS; TOXIC GRANULATION SLIGHT
[2019-07-24 08:00] VITALS: BP 114/77
[2019-07-24 12:00] VITALS: BP 117/70
[2019-07-24 16:00] VITALS: BP 127/65
[2019-07-24 20:00] VITALS: BP 116/77
[2019-07-25] VITALS: BP 118/69
[2019-07-25 06:12] LABS: HEMATOCRIT 39.7 % (42.0-52.0); HEMOGLOBIN 12.6 g/dl (14.0-18.0); MEAN CELL VOLUME 96.6 fl (80.0-94.0); MEAN CORPUSCULAR HGB 30.7 pg (27.0-31.0); MEAN CORPUSCULAR HGB CONC 31.7 g/dl (33.0-37.0); MEAN PLATELET VOLUME 11.4 fl (9.6-12.3); PLATELET COUNT AUTOMATED 334 10*3/uL (130-400); RED BLOOD COUNT 4.11 10*6/uL (4.50-5.90); RED CELL DISTRI WIDTH 14.4 % (0-14.5); WHITE BLOOD COUNT 17.2 10*3/uL (4.8-10.8)
[2019-07-25 06:20] LABS: CREATININE 1.44 mg/dL (0.70-1.30); POTASSIUM 4.1 mmol/L (3.5-5.1)
[2019-07-25 06:38] LABS: BASOPHILS 1 % (0-1); PLATELET SUFFICIENCY NORMAL (NORMAL); TOTAL CELLS COUNTED 100 #CELLS; TOXIC GRANULATION MODERATE
[2019-07-25 08:00] VITALS: BP 153/101
[2019-07-25 12:00] VITALS: BP 124/70
[2019-07-25 16:00] VITALS: BP 127/72
[2019-07-25 20:00] VITALS: BP 121/64
[2019-07-26] VITALS: BP 134/99
[2019-07-26 06:02] LABS: CREATININE 1.5 mg/dL (0.70-1.30)
[2019-07-26 06:07] LABS: HEMATOCRIT 39.5 % (42.0-52.0); HEMOGLOBIN 12.5 g/dl (14.0-18.0); MEAN CELL VOLUME 97.8 fl (80.0-94.0); MEAN CORPUSCULAR HGB 30.9 pg (27.0-31.0); MEAN CORPUSCULAR HGB CONC 31.6 g/dl (33.0-37.0); MEAN PLATELET VOLUME 11.5 fl (9.6-12.3); PLATELET COUNT AUTOMATED 347 10*3/uL (130-400); RED BLOOD COUNT 4.04 10*6/uL (4.50-5.90); RED CELL DISTRI WIDTH 14.5 % (0-14.5); WHITE BLOOD COUNT 20.6 10*3/uL (4.8-10.8)
[2019-07-26 06:55] LABS: PLATELET SUFFICIENCY NORMAL (NORMAL); TOTAL CELLS COUNTED 100 #CELLS; TOXIC GRANULATION SLIGHT
[2019-07-26 08:00] VITALS: BP 127/74
[2019-07-26 12:00] VITALS: BP 120/64
[2019-07-26 16:00] VITALS: BP 112/72
[2019-07-26 20:00] VITALS: BP 128/83
[2019-07-27] VITALS: BP 100/53
[2019-07-27 07:06] LABS: CREATININE 1.5 mg/dL (0.70-1.30)
[2019-07-27 07:12] LABS: HEMATOCRIT 39.1 % (42.0-52.0); HEMOGLOBIN 12.4 g/dl (14.0-18.0); MEAN CELL VOLUME 96.5 fl (80.0-94.0); MEAN CORPUSCULAR HGB 30.6 pg (27.0-31.0); MEAN CORPUSCULAR HGB CONC 31.7 g/dl (33.0-37.0); MEAN PLATELET VOLUME 11.6 fl (9.6-12.3); PLATELET COUNT AUTOMATED 389 10*3/uL (130-400); RED BLOOD COUNT 4.05 10*6/uL (4.50-5.90); RED CELL DISTRI WIDTH 14.4 % (0-14.5); WHITE BLOOD COUNT 20.2 10*3/uL (4.8-10.8)
[2019-07-27 07:44] LABS: PLATELET SUFFICIENCY NORMAL (NORMAL); TOTAL CELLS COUNTED 100 #CELLS
[2019-07-27 08:00] VITALS: BP 121/69
[2019-07-27 12:00] VITALS: BP 122/62
[2019-07-27 16:00] VITALS: BP 133/84
[2019-07-27 20:00] VITALS: BP 94/68
[2019-07-28] VITALS: BP 114/90
[2019-07-28 05:56] LABS: HEMATOCRIT 41.5 % (42.0-52.0); HEMOGLOBIN 13.2 g/dl (14.0-18.0); MEAN CORPUSCULAR HGB 30.8 pg (27.0-31.0); MEAN CORPUSCULAR HGB CONC 31.8 g/dl (33.0-37.0); PLATELET COUNT AUTOMATED 448 10*3/uL (130-400); RED BLOOD COUNT 4.28 10*6/uL (4.50-5.90); RED CELL DISTRI WIDTH 14.4 % (0-14.5); WHITE BLOOD COUNT 21.4 10*3/uL (4.8-10.8)
[2019-07-28 06:08] LABS: CREATININE 1.46 mg/dL (0.70-1.30); POTASSIUM 4.5 mmol/L (3.5-5.1)
[2019-07-28 06:10] LABS: VANCOMYCIN TROUGH 17.5 ug/mL (10-20)
[2019-07-28 07:33] LABS: BASOPHILS 1 % (0-1); DOHLE BODIES FEW; TOTAL CELLS COUNTED 100 #CELLS; TOXIC GRANULATION SLIGHT; VACUOLATION OF NEUTROPHILS SLIGHT
[2019-07-28 07:34] LABS: PLATELET SUFFICIENCY HIGH (NORMAL); POLYCHROMASIA SLIGHT
[2019-07-28 08:00] VITALS: BP 122/88
[2019-07-28 12:00] VITALS: BP 116/84
[2019-07-28 16:00] VITALS: BP 126/76
[2019-07-28 20:00] VITALS: BP 124/93
[2019-07-29] VITALS: BP 105/66
[2019-07-29 06:25] LABS: BASO # 0.1 10*3/uL (0.0-0.1); BASO % 0.3 % (0.0-1.0); HEMATOCRIT 40.9 % (42.0-52.0); HEMOGLOBIN 12.7 g/dl (14.0-18.0); LYMPH # 1.1 10*3/uL (1.3-4.4); LYMPH % 5.3 % (27.0-41.0); MEAN CELL VOLUME 98.6 fl (80.0-94.0); MEAN CORPUSCULAR HGB 30.6 pg (27.0-31.0); MEAN CORPUSCULAR HGB CONC 31.1 g/dl (33.0-37.0); MEAN PLATELET VOLUME 11.4 fl (9.6-12.3); MONO # 0.7 10*3/uL (0.1-1.0); MONO % 3.4 % (3.0-9.0); NEUT # 17.7 10*3/uL (2.3-7.9); NEUT % 89.7 % (47.0-73.0); PLATELET COUNT AUTOMATED 472 10*3/uL (130-400); RED BLOOD COUNT 4.15 10*6/uL (4.50-5.90); RED CELL DISTRI WIDTH 14.3 % (0-14.5); WHITE BLOOD COUNT 19.7 10*3/uL (4.8-10.8)
[2019-07-29 06:31] LABS: BUN 38 mg/dl (7-24); CHLORIDE 103 mmol/L (98-107); CREATININE 1.32 mg/dL (0.70-1.30); POTASSIUM 4.5 mmol/L (3.5-5.1); SODIUM 138 mmol/L (136-145)
[2019-07-29 08:00] VITALS: BP 109/69
[2019-07-29 12:00] VITALS: BP 129/79
[2019-07-29] MEDS ORDERED: HYDROCODONE-AC1 EAC1 PO (14:00)
[2019-07-29] MEDS ORDERED: PREDNISONE20 M1 PO (14:00)
[2019-07-29] MEDS ORDERED: AQUAPHOR WITH N50 GM T (14:00)
[2019-07-29] MEDS ORDERED: DOXYCYCLINE100 M3 PO ×2 (14:00→14:04)
[2019-07-29] MEDS ORDERED: CLEOCIN HCL300 MG PO (14:00)
[2019-07-29] MEDS ORDERED: COZAAR100 MG PO (14:00)
== END 2019-07-29 15:55 | DRG 602 ==
LOC: ED 05:38 → 4E 08:19 → EDHOLD 08:19 → 5E 08:19 → 4E 09:07 → 5E 07-22 14:13
PROVIDERS: Emergency Medicine Emergency Medical Services; Family Medicine; Internal Medicine; Registered Nurse; Student in an Organized Health Care Education/Training Program; ADMIT Emergency Medicine
PROC: 5A09357 Assistance with Respiratory Ventilation, Less than 24 Consecutive Hours, Continuous Positive Airway Pressure (ICD-10-PCS; principal; 2019-07-23)
PROC: 5A09357 Assistance with Respiratory Ventilation, Less than 24 Consecutive Hours, Continuous Positive Airway Pressure (ICD-10-PCS; 2019-07-25)
DX: L03.115 Cellulitis of right lower limb (principal); E43 Unspecified severe protein-calorie malnutrition; D68.59 Other primary thrombophilia; I48.20 Chronic atrial fibrillation, unspecified; Z68.42 Body mass index [BMI] 45.0-49.9, adult; E11.51 Type 2 diabetes mellitus with diabetic peripheral angiopathy without gangrene; N40.0 Benign prostatic hyperplasia without lower urinary tract symptoms; E29.1 Testicular hypofunction; I12.9 Hypertensive chronic kidney disease with stage 1 through stage 4 chronic kidney disease, or unspecified chronic kidney disease; N18.3 Chronic kidney disease, stage 3 (moderate); D53.9 Nutritional anemia, unspecified; D69.6 Thrombocytopenia, unspecified; I87.8 Other specified disorders of veins; I87.2 Venous insufficiency (chronic) (peripheral); M10.9 Gout, unspecified; Z79.01 Long term (current) use of anticoagulants; Z90.49 Acquired absence of other specified parts of digestive tract; Z82.49 Family history of ischemic heart disease and other diseases of the circulatory system; Z83.6 Family history of other diseases of the respiratory system; Z80.52 Family history of malignant neoplasm of bladder; Z80.6 Family history of leukemia; Z79.899 Other long term (current) drug therapy; I80.3 Phlebitis and thrombophlebitis of lower extremities, unspecified; B35.1 Tinea unguium; Z53.20 Procedure and treatment not carried out because of patient's decision for unspecified reasons; E11.42 Type 2 diabetes mellitus with diabetic polyneuropathy; E11.65 Type 2 diabetes mellitus with hyperglycemia; E66.01 Morbid (severe) obesity due to excess calories

== ENCOUNTER → 2019-08-20 | Outpatient (CLI) | payer OTHER ==
[~2019-08-20] MED LIST changes: +AQUAPHOR WITH N50 GM T; +CLEOCIN HCL300 MG PO; +DOXYCYCLINE100 M3 PO; +HYDROCODONE-AC1 EAC1 PO; +Oscal,Oyster S500 MG PO; +PENNSAID112 GM T; +PREDNISONE20 M1 PO; +VITAMIN B1250 MCG PO; +VITAMIN D-32000 UNI1 PO
[2019-08-20 17:07] LABS: BUN 35 mg/dl (7-24); CHLORIDE 106 mmol/L (98-107); CREATININE 1.31 mg/dL (0.70-1.30); POTASSIUM 4.3 mmol/L (3.5-5.1); SODIUM 141 mmol/L (136-145)
== END | disposition home or self-care (01) ==
LOC: RESCLI 00:27
PROVIDERS: Internal Medicine; Internal Medicine Cardiovascular Disease
DX: I48.20 Chronic atrial fibrillation, unspecified (principal); E55.9 Vitamin D deficiency, unspecified; E53.8 Deficiency of other specified B group vitamins; G62.9 Polyneuropathy, unspecified; I12.9 Hypertensive chronic kidney disease with stage 1 through stage 4 chronic kidney disease, or unspecified chronic kidney disease; N18.3 Chronic kidney disease, stage 3 (moderate); N40.0 Benign prostatic hyperplasia without lower urinary tract symptoms; M10.041 Idiopathic gout, right hand; G47.33 Obstructive sleep apnea (adult) (pediatric); R60.0 Localized edema; Z79.899 Other long term (current) drug therapy; Z79.01 Long term (current) use of anticoagulants; Z90.89 Acquired absence of other organs; Z90.49 Acquired absence of other specified parts of digestive tract

== ENCOUNTER → 2019-09-17 | Outpatient (CLI) | payer OTHER | END | disposition home or self-care (01) | LOC: RESCLI 08:53 | DX: I13.10 Hypertensive heart and chronic kidney disease without heart failure, with stage 1 through stage 4 chronic kidney disease, or unspecified chronic kidney disease (principal); N18.3 Chronic kidney disease, stage 3 (moderate); I48.20 Chronic atrial fibrillation, unspecified; N40.0 Benign prostatic hyperplasia without lower urinary tract symptoms; R60.0 Localized edema; R73.03 Prediabetes; D68.59 Other primary thrombophilia; G47.33 Obstructive sleep apnea (adult) (pediatric); E55.9 Vitamin D deficiency, unspecified; E66.01 Morbid (severe) obesity due to excess calories; E44.1 Mild protein-calorie malnutrition; G62.9 Polyneuropathy, unspecified; R74.0 Nonspecific elevation of levels of transaminase and lactic acid dehydrogenase [LDH]; G89.29 Other chronic pain; E29.1 Testicular hypofunction; M51.26 Other intervertebral disc displacement, lumbar region; E22.9 Hyperfunction of pituitary gland, unspecified; R19.7 Diarrhea, unspecified; M10.041 Idiopathic gout, right hand; L03.818 Cellulitis of other sites; Z79.899 Other long term (current) drug therapy; Z90.49 Acquired absence of other specified parts of digestive tract; Z90.89 Acquired absence of other organs; Z98.1 Arthrodesis status ==

== ENCOUNTER → 2020-10-18 | Outpatient (CLI) | payer OTHER | LOC: WOUNDCARE 08:13 | PROVIDERS: ATTEND Nurse Practitioner | DX: L97.212 Non-pressure chronic ulcer of right calf with fat layer exposed (principal); L97.222 Non-pressure chronic ulcer of left calf with fat layer exposed; I89.0 Lymphedema, not elsewhere classified; I73.9 Peripheral vascular disease, unspecified; I10 Essential (primary) hypertension; I48.91 Unspecified atrial fibrillation; G62.9 Polyneuropathy, unspecified; G47.30 Sleep apnea, unspecified ==

== ENCOUNTER → 2020-10-25 | Outpatient (CLI) | payer OTHER | LOC: WOUNDCARE 00:23 | PROVIDERS: ATTEND Nurse Practitioner | DX: L97.212 Non-pressure chronic ulcer of right calf with fat layer exposed (principal); L97.222 Non-pressure chronic ulcer of left calf with fat layer exposed; I89.0 Lymphedema, not elsewhere classified; I73.9 Peripheral vascular disease, unspecified; I10 Essential (primary) hypertension; I48.91 Unspecified atrial fibrillation; G62.9 Polyneuropathy, unspecified; G47.30 Sleep apnea, unspecified ==

== ENCOUNTER → 2021-01-24 | Outpatient (CLI) | payer MEDICARE | END | disposition home or self-care (01) | LOC: RESCLI 01:03 | PROVIDERS: ATTEND Internal Medicine Nephrology | DX: I13.0 Hypertensive heart and chronic kidney disease with heart failure and stage 1 through stage 4 chronic kidney disease, or unspecified chronic kidney disease (principal); I50.32 Chronic diastolic (congestive) heart failure; N18.30 Chronic kidney disease, stage 3 unspecified; I48.20 Chronic atrial fibrillation, unspecified; M1A.09X0 Idiopathic chronic gout, multiple sites, without tophus (tophi); I89.0 Lymphedema, not elsewhere classified; N40.0 Benign prostatic hyperplasia without lower urinary tract symptoms; I87.2 Venous insufficiency (chronic) (peripheral); G47.33 Obstructive sleep apnea (adult) (pediatric); G62.9 Polyneuropathy, unspecified; E55.9 Vitamin D deficiency, unspecified; M19.90 Unspecified osteoarthritis, unspecified site; M1A.9XX1 Chronic gout, unspecified, with tophus (tophi); M24.549 Contracture, unspecified hand; G56.03 Carpal tunnel syndrome, bilateral upper limbs; Z98.890 Other specified postprocedural states; Z90.49 Acquired absence of other specified parts of digestive tract; Z79.899 Other long term (current) drug therapy ==

== ENCOUNTER → 2021-04-04 | Outpatient (CLI) | payer MEDICARE | END | disposition home or self-care (01) | LOC: RESCLI 01:13 | PROVIDERS: ATTEND Internal Medicine Nephrology | DX: M1A.9XX1 Chronic gout, unspecified, with tophus (tophi) (principal); I13.0 Hypertensive heart and chronic kidney disease with heart failure and stage 1 through stage 4 chronic kidney disease, or unspecified chronic kidney disease; I50.30 Unspecified diastolic (congestive) heart failure; N18.30 Chronic kidney disease, stage 3 unspecified; I48.20 Chronic atrial fibrillation, unspecified; M1A.09X0 Idiopathic chronic gout, multiple sites, without tophus (tophi); I89.0 Lymphedema, not elsewhere classified; N40.0 Benign prostatic hyperplasia without lower urinary tract symptoms; I87.2 Venous insufficiency (chronic) (peripheral); G47.33 Obstructive sleep apnea (adult) (pediatric); G62.9 Polyneuropathy, unspecified; E55.9 Vitamin D deficiency, unspecified; M19.90 Unspecified osteoarthritis, unspecified site; M24.549 Contracture, unspecified hand; G56.03 Carpal tunnel syndrome, bilateral upper limbs; R68.89 Other general symptoms and signs; Z90.49 Acquired absence of other specified parts of digestive tract; Z98.890 Other specified postprocedural states; Z79.899 Other long term (current) drug therapy ==

== ENCOUNTER → 2021-05-02 | Outpatient (CLI) | payer MEDICARE | END | disposition home or self-care (01) | LOC: COVID19 17:40 | PROVIDERS: ATTEND Internal Medicine | DX: Z11.52 Encounter for screening for COVID-19 (principal) ==

== ENCOUNTER → 2021-06-28 | Outpatient (CLI) | payer MEDICARE | END | disposition home or self-care (01) | LOC: COVID19 15:48 | PROVIDERS: ATTEND Hospitalist | DX: U07.1 COVID-19 (principal) ==

== ENCOUNTER → 2021-09-05 | Outpatient (CLI) | payer MEDICARE | END | disposition home or self-care (01) | LOC: LAB 13:57 | PROVIDERS: ATTEND Internal Medicine Nephrology | DX: R68.89 Other general symptoms and signs (principal) ==

== ENCOUNTER → 2021-10-24 | Outpatient (CLI) | payer MEDICARE ==
[~2021-10-24] MED LIST changes: +AMOXICILLIN500 M2 PO; +ELIQUIS5 M1 PO; +FUROSEMIDE40 MG PO; +LEVOFLOXACIN750 M2 PO; +PREDNISONE10 MG PO; +PROTONIX40 MG PO
[2021-10-24 16:52] LABS: BASO # 0.1 10*3/uL (0.0-0.1); BASO % 0.6 % (0.0-1.0); EOS # 0.9 10*3/uL (0.0-0.4); EOS % 9.7 % (1.0-4.0); HEMATOCRIT 31.6 % (42.0-52.0); LYMPH # 2.2 10*3/uL (1.3-4.4); LYMPH % 22.4 % (27.0-41.0); MEAN CELL VOLUME 77.1 fl (80.0-94.0); MEAN CORPUSCULAR HGB 21.2 pg (27.0-31.0); MEAN CORPUSCULAR HGB CONC 27.5 g/dl (33.0-37.0); MEAN PLATELET VOLUME 10.9 fl (9.6-12.3); MONO # 0.9 10*3/uL (0.1-1.0); MONO % 9.1 % (3.0-9.0); NEUT # 5.6 10*3/uL (2.3-7.9); NEUT % 57.9 % (47.0-73.0); PLATELET COUNT AUTOMATED 312 10*3/uL (130-400); RED CELL DISTRI WIDTH 21.9 % (0-14.5); WHITE BLOOD COUNT 9.7 10*3/uL (4.8-10.8)
[2021-10-24 17:04] LABS: BUN 27 mg/dl (7-24); CHLORIDE 107 mmol/L (98-107); CREATININE 1.39 mg/dL (0.70-1.30); POTASSIUM 4.7 mmol/L (3.5-5.1); SODIUM 140 mmol/L (136-145)
== END | disposition home or self-care (01) ==
LOC: RESCLI 01:26
PROVIDERS: Internal Medicine; ATTEND Internal Medicine Nephrology
DX: Z09 Encounter for follow-up examination after completed treatment for conditions other than malignant neoplasm (principal); K92.2 Gastrointestinal hemorrhage, unspecified; I48.91 Unspecified atrial fibrillation; I11.0 Hypertensive heart disease with heart failure; I50.32 Chronic diastolic (congestive) heart failure; N40.0 Benign prostatic hyperplasia without lower urinary tract symptoms; M1A.09X0 Idiopathic chronic gout, multiple sites, without tophus (tophi); Z79.899 Other long term (current) drug therapy; Z98.890 Other specified postprocedural states

== ENCOUNTER → 2021-10-31 | Outpatient (CLI) | payer MEDICARE ==
[2021-10-31 15:19] LABS: CREATININE 1.64 mg/dL (0.70-1.30); POTASSIUM 4.5 mmol/L (3.5-5.1)
== END | disposition home or self-care (01) ==
LOC: LAB 14:24
PROVIDERS: ATTEND Hospitalist
DX: I50.32 Chronic diastolic (congestive) heart failure (principal)

== ENCOUNTER → 2021-11-09 | Outpatient (CLI) | payer MEDICARE | END | disposition home or self-care (01) | LOC: RESCLI 01:50 | PROVIDERS: ATTEND Internal Medicine Nephrology | DX: I48.21 Permanent atrial fibrillation (principal); I50.32 Chronic diastolic (congestive) heart failure; M1A.09X0 Idiopathic chronic gout, multiple sites, without tophus (tophi); N40.0 Benign prostatic hyperplasia without lower urinary tract symptoms; I10 Essential (primary) hypertension; E66.01 Morbid (severe) obesity due to excess calories; E29.1 Testicular hypofunction; E55.9 Vitamin D deficiency, unspecified; G47.33 Obstructive sleep apnea (adult) (pediatric); G56.03 Carpal tunnel syndrome, bilateral upper limbs; I87.2 Venous insufficiency (chronic) (peripheral); I89.0 Lymphedema, not elsewhere classified; K21.9 Gastro-esophageal reflux disease without esophagitis; E53.8 Deficiency of other specified B group vitamins; N17.9 Acute kidney failure, unspecified; N18.9 Chronic kidney disease, unspecified; Z79.899 Other long term (current) drug therapy; Z98.890 Other specified postprocedural states; Z88.8 Allergy status to other drugs, medicaments and biological substances ==

== ENCOUNTER → 2021-11-30 | Outpatient (CLI) | payer MEDICARE ==
[2021-11-30 15:20] LABS: BILIRUBIN Negative (Negative); BLOOD Negative (Negative); CLARITY Clear (Clear); COLOR Yellow (Yellow); GLUCOSE Negative (Negative); KETONE Negative (Negative); LEUKO ESTERASE Negative (Negative); NITRITE Negative (Negative); PH 7.5 (4.5-8.0)
[2021-11-30 15:30] LABS: BUN 41 mg/dl (7-24); CHLORIDE 102 mmol/L (98-107); CREATININE 1.37 mg/dL (0.70-1.30); POTASSIUM 4.4 mmol/L (3.5-5.1); SODIUM 139 mmol/L (136-145)
[2021-11-30 15:31] LABS: BACTERIA 1+
== END | disposition home or self-care (01) ==
LOC: RESCLI 01:57
PROVIDERS: Hospitalist; ATTEND Internal Medicine Nephrology
DX: N17.9 Acute kidney failure, unspecified (principal)

== ENCOUNTER → 2021-12-28 | Outpatient (CLI) | payer MEDICARE ==
[~2021-12-28] MED LIST changes: +CENTRUM SILVER1 EACH PO; +FLOMAX0.4 MG PO; +XARELTO2.5 MG PO; +ZYLOPRIM100 MG PO
[2021-12-28 15:46] LABS: BASO # 0.1 10*3/uL (0.0-0.1); BASO % 0.7 % (0.0-1.0); EOS # 0.3 10*3/uL (0.0-0.4); EOS % 2.9 % (1.0-4.0); HEMATOCRIT 33.9 % (42.0-52.0); LYMPH # 2.7 10*3/uL (1.3-4.4); LYMPH % 24.9 % (27.0-41.0); MEAN CORPUSCULAR HGB 20.2 pg (27.0-31.0); MEAN CORPUSCULAR HGB CONC 26.5 g/dl (33.0-37.0); MONO # 1.1 10*3/uL (0.1-1.0); MONO % 10.4 % (3.0-9.0); NEUT # 6.3 10*3/uL (2.3-7.9); NEUT % 58.9 % (47.0-73.0); NUCLEATED RED BLOOD CELL 0.4 % (0.0-0.0); PLATELET COUNT AUTOMATED 638 10*3/uL (130-400); RED BLOOD COUNT 4.46 10*6/uL (4.50-5.90); RED CELL DISTRI WIDTH 21.6 % (0-14.5); WHITE BLOOD COUNT 10.8 10*3/uL (4.8-10.8)
[2021-12-28 16:25] LABS: BUN 34 mg/dl (7-24); CHLORIDE 108 mmol/L (98-107); CREATININE 1.32 mg/dL (0.70-1.30); POTASSIUM 4.1 mmol/L (3.5-5.1); SODIUM 143 mmol/L (136-145)
== END | disposition home or self-care (01) ==
LOC: LAB 14:36 → RESCLI 14:36
PROVIDERS: Hospitalist; ATTEND Internal Medicine Nephrology
DX: I48.91 Unspecified atrial fibrillation (principal); I50.32 Chronic diastolic (congestive) heart failure; K92.1 Melena

== ENCOUNTER 2022-01-06 12:36 | Emergency (ER) | payer MEDICARE ==
[~2022-01-06] VITALS: Ht 190.5 cm; Wt 171.0 kg
[~2022-01-06 12:36] MED LIST changes: +COLACE100 MG PO; +Percocet 325 MG1 TAB PO
== END 2022-01-06 14:26 | disposition home or self-care (01) ==
LOC: ED 12:36
DX: S81.812A Laceration without foreign body, left lower leg, initial encounter (principal); Z79.899 Other long term (current) drug therapy; Z90.49 Acquired absence of other specified parts of digestive tract; Z90.89 Acquired absence of other organs; Z98.890 Other specified postprocedural states; W45.8XXA Other foreign body or object entering through skin, initial encounter; Y93.89 Activity, other specified; Y92.89 Other specified places as the place of occurrence of the external cause; Y99.8 Other external cause status

== ENCOUNTER → 2022-01-18 | Outpatient (CLI) | payer MEDICARE ==
[2022-01-18 12:09] LABS: BASO # 0.1 10*3/uL (0.0-0.1); BASO % 0.8 % (0.0-1.0); EOS # 0.7 10*3/uL (0.0-0.4); EOS % 8.2 % (1.0-4.0); HEMATOCRIT 31.3 % (42.0-52.0); LYMPH # 2.3 10*3/uL (1.3-4.4); LYMPH % 25.9 % (27.0-41.0); MEAN CELL VOLUME 74.9 fl (80.0-94.0); MEAN CORPUSCULAR HGB 19.9 pg (27.0-31.0); MEAN CORPUSCULAR HGB CONC 26.5 g/dl (33.0-37.0); MEAN PLATELET VOLUME 9.4 fl (9.6-12.3); MONO % 10.6 % (3.0-9.0); NEUT # 4.9 10*3/uL (2.3-7.9); NEUT % 54.2 % (47.0-73.0); PLATELET COUNT AUTOMATED 269 10*3/uL (130-400); RED BLOOD COUNT 4.18 10*6/uL (4.50-5.90); RED CELL DISTRI WIDTH 20.4 % (0-14.5)
== END | disposition home or self-care (01) ==
LOC: RESCLI 00:46
PROVIDERS: Student in an Organized Health Care Education/Training Program; ATTEND Internal Medicine
DX: I13.0 Hypertensive heart and chronic kidney disease with heart failure and stage 1 through stage 4 chronic kidney disease, or unspecified chronic kidney disease (principal); R60.9 Edema, unspecified; I48.91 Unspecified atrial fibrillation; E56.9 Vitamin deficiency, unspecified; M19.90 Unspecified osteoarthritis, unspecified site; M1A.09X0 Idiopathic chronic gout, multiple sites, without tophus (tophi); N18.30 Chronic kidney disease, stage 3 unspecified; N40.0 Benign prostatic hyperplasia without lower urinary tract symptoms; E55.9 Vitamin D deficiency, unspecified; G47.33 Obstructive sleep apnea (adult) (pediatric); K21.9 Gastro-esophageal reflux disease without esophagitis; E53.8 Deficiency of other specified B group vitamins; I50.32 Chronic diastolic (congestive) heart failure; K62.5 Hemorrhage of anus and rectum; Z79.899 Other long term (current) drug therapy; Z79.01 Long term (current) use of anticoagulants; Z90.49 Acquired absence of other specified parts of digestive tract

== ENCOUNTER → 2022-01-24 | Outpatient (CLI) | payer MEDICARE ==
[2022-01-24 13:25] LABS: CREATININE 1.8 mg/dL (0.70-1.30); POTASSIUM 3.8 mmol/L (3.5-5.1)
== END | disposition home or self-care (01) ==
LOC: LAB 13:00
PROVIDERS: Student in an Organized Health Care Education/Training Program; ATTEND Internal Medicine
DX: K62.5 Hemorrhage of anus and rectum (principal); R60.9 Edema, unspecified

== ENCOUNTER → 2022-01-25 | Outpatient (CLI) | payer MEDICARE ==
[2022-01-25 17:32] LABS: BILIRUBIN Negative (Negative); BLOOD Negative (Negative); CLARITY Clear (Clear); COLOR Yellow (Yellow); GLUCOSE Negative (Negative); KETONE Negative (Negative); LEUKO ESTERASE Negative (Negative); NITRITE Negative (Negative); PH 5.5 (4.5-8.0); SPECIFIC GRAVITY 1.015 (1.001-1.030); UROBILINOGEN 0.2 E.U./dl (0.0-1.0)
[2022-01-25 17:50] LABS: BACTERIA TRACE; HYALINE CAST 16-20; WBC 0-2 wbc/hpf (0-5)
== END | disposition home or self-care (01) ==
LOC: RESCLI 01:54
PROVIDERS: Student in an Organized Health Care Education/Training Program; ATTEND Internal Medicine
DX: I13.0 Hypertensive heart and chronic kidney disease with heart failure and stage 1 through stage 4 chronic kidney disease, or unspecified chronic kidney disease (principal); I50.32 Chronic diastolic (congestive) heart failure; N18.30 Chronic kidney disease, stage 3 unspecified; E56.9 Vitamin deficiency, unspecified; M19.90 Unspecified osteoarthritis, unspecified site; G47.33 Obstructive sleep apnea (adult) (pediatric); I48.91 Unspecified atrial fibrillation; M1A.09X0 Idiopathic chronic gout, multiple sites, without tophus (tophi); N40.0 Benign prostatic hyperplasia without lower urinary tract symptoms; E55.9 Vitamin D deficiency, unspecified; M20.11 Hallux valgus (acquired), right foot; M77.31 Calcaneal spur, right foot; M25.871 Other specified joint disorders, right ankle and foot; K21.9 Gastro-esophageal reflux disease without esophagitis; L89.90 Pressure ulcer of unspecified site, unspecified stage; Z79.899 Other long term (current) drug therapy; Z90.49 Acquired absence of other specified parts of digestive tract

== ENCOUNTER → 2022-02-01 | Outpatient (CLI) | payer MEDICARE ==
[2022-02-01 15:34] LABS: CREATININE 1.67 mg/dL (0.70-1.30); POTASSIUM 4.2 mmol/L (3.5-5.1)
== END | disposition home or self-care (01) ==
LOC: RESCLI 01:22
PROVIDERS: Student in an Organized Health Care Education/Training Program; ATTEND Student in an Organized Health Care Education/Training Program
DX: I13.0 Hypertensive heart and chronic kidney disease with heart failure and stage 1 through stage 4 chronic kidney disease, or unspecified chronic kidney disease (principal); I50.32 Chronic diastolic (congestive) heart failure; N18.30 Chronic kidney disease, stage 3 unspecified; M19.90 Unspecified osteoarthritis, unspecified site; E56.9 Vitamin deficiency, unspecified; I48.91 Unspecified atrial fibrillation; M1A.09X0 Idiopathic chronic gout, multiple sites, without tophus (tophi); N40.0 Benign prostatic hyperplasia without lower urinary tract symptoms; E55.9 Vitamin D deficiency, unspecified; G47.33 Obstructive sleep apnea (adult) (pediatric); K21.9 Gastro-esophageal reflux disease without esophagitis; E53.8 Deficiency of other specified B group vitamins; R60.9 Edema, unspecified; L89.90 Pressure ulcer of unspecified site, unspecified stage; R53.83 Other fatigue; R53.1 Weakness; Z79.899 Other long term (current) drug therapy; Z90.49 Acquired absence of other specified parts of digestive tract

== ENCOUNTER → 2022-02-10 | Outpatient (CLI) | payer MEDICARE | LOC: WOUNDCARE 00:43 | PROVIDERS: ATTEND Nurse Practitioner Family | DX: E11.622 Type 2 diabetes mellitus with other skin ulcer (principal); L97.822 Non-pressure chronic ulcer of other part of left lower leg with fat layer exposed; L89.893 Pressure ulcer of other site, stage 3; I48.91 Unspecified atrial fibrillation; E66.01 Morbid (severe) obesity due to excess calories; G47.30 Sleep apnea, unspecified; G62.9 Polyneuropathy, unspecified; N40.0 Benign prostatic hyperplasia without lower urinary tract symptoms; I50.9 Heart failure, unspecified; I89.0 Lymphedema, not elsewhere classified; I10 Essential (primary) hypertension; I87.2 Venous insufficiency (chronic) (peripheral); Z68.43 Body mass index [BMI] 50.0-59.9, adult ==

== ENCOUNTER → 2022-02-15 | Outpatient (CLI) | payer MEDICARE | END | disposition home or self-care (01) | LOC: WOUNDCARE 01:27 | PROVIDERS: ATTEND Nurse Practitioner Family | DX: L89.893 Pressure ulcer of other site, stage 3 (principal); E11.622 Type 2 diabetes mellitus with other skin ulcer; L97.822 Non-pressure chronic ulcer of other part of left lower leg with fat layer exposed; I89.0 Lymphedema, not elsewhere classified; E66.01 Morbid (severe) obesity due to excess calories; G47.30 Sleep apnea, unspecified; I87.2 Venous insufficiency (chronic) (peripheral); I48.91 Unspecified atrial fibrillation; I10 Essential (primary) hypertension; I50.9 Heart failure, unspecified; N40.0 Benign prostatic hyperplasia without lower urinary tract symptoms; M79.2 Neuralgia and neuritis, unspecified; Z68.43 Body mass index [BMI] 50.0-59.9, adult ==

== ENCOUNTER → 2022-03-01 | Outpatient (CLI) | payer MEDICARE ==
[2022-03-01 11:08] LABS: HEMATOCRIT 24.1 % (42.0-52.0); MEAN CORPUSCULAR HGB 18.5 pg (27.0-31.0); MEAN CORPUSCULAR HGB CONC 25.3 g/dl (33.0-37.0); MEAN PLATELET VOLUME 9.5 fl (9.6-12.3); NUCLEATED RED BLOOD CELL 0.1 10*3/uL (0.0-0.0); NUCLEATED RED BLOOD CELL 0.8 % (0.0-0.0); PLATELET COUNT AUTOMATED 479 10*3/uL (130-400); RED CELL DISTRI WIDTH 20.1 % (0-14.5); WHITE BLOOD COUNT 8.4 10*3/uL (4.8-10.8)
[2022-03-01 11:09] LABS: MANUAL DIFF REFLEX YES
[2022-03-01 11:27] LABS: CREATININE 1.64 mg/dL (0.70-1.30); POTASSIUM 4.6 mmol/L (3.5-5.1); TOTAL PROTEIN 7.2 gm/dL (6.4-8.2)
[2022-03-01 11:49] LABS: MICROCYTOSIS SLIGHT; OVALOCYTES FEW; PLATELET SUFFICIENCY HIGH (NORMAL); POLYCHROMASIA SLIGHT; ROULEAUX SLIGHT; TOTAL CELLS COUNTED 100 #CELLS
[2022-03-01 11:50] LABS: SCHISTOCYTES FEW; TARGET CELLS FEW
== END | disposition home or self-care (01) ==
LOC: LAB 10:40
PROVIDERS: ATTEND Internal Medicine Cardiovascular Disease
DX: I50.33 Acute on chronic diastolic (congestive) heart failure (principal)